=== PATIENT | male | born 1960 | race Caucasian/White ===

== ENCOUNTER 2020-01-25 14:24 | Emergency (ER) | payer BC, SELFPAY ==
[2020-01-25 14:38] VITALS: BP 187/146; PULSE 62; RESP 18; TEMP 36.8; O2SAT 98; BMI 46.7
--- NOTE | 2020-01-25 15:01 | XRR_ITS ---
PROCEDURE INFORMATION: Exam: XR Left Hand Exam date and time: 01/25/2020 3:01 PM Age: 59 years old Clinical indication: Injury or trauma; Other: Chainsaw; Laceration; Finger; Left; Thumb; Injury date: Today; Additional info: Thumb-laceration TECHNIQUE: Imaging protocol: XR Left hand. Views: 3 or more views. COMPARISON: No relevant prior studies available. FINDINGS: Bones/joints: There is a bandage on the distal 1st phalanx. There is a small bone fragment just volar to the base of the 1st distal phalanx that may be a small new fracture. No additional acute fracture. No dislocation. Moderate diffuse degenerative changes are noted. Soft tissues: There is soft tissue edema of the distal 1st phalanx. No foreign body. XR/XR hand LT min 3V* [id number] IMPRESSION: 1. There is soft tissue edema of the distal 1st phalanx. 2. There is a small bone fragment just volar to the base of the 1st distal phalanx that may be a small new fracture.
--- NOTE | 2020-01-25 15:01 | ED_ITS ---
HPI - Wound/Laceration General: Chief Complaint: Wound/Laceration Stated Complaint: LEFT HAND LACERATION Time Seen by Provider: 01/25/20 14:48 History of Present Illness: HPI narrative: Patient cut left thumb pad with chain saw about an hour ago Onset (ago): hour(s) Extremity Location: Left: hand (Thumb) Place: home Patient tetanus UTD: No Context: accidental Associated symptoms: Reports no associated symptoms; Denies chills or fever(s) Review of Systems Const: Denies: fever(s) or chills Skin/Breast: Reports: other (Laceration to thumb from chainsaw having about an hour ago) Physical Exam Const: COMMON NORMALS: no acute distress Skin: GENERAL SKIN EXAM: other (Patient has macerated the fat pad left thumb distal aspect active bleeding) Procedures Laceration Laceration 1: Site: hand Side (If applicable): left Size (cm): 5 Description: stellate, flap, irregular and contaminated Depth: simple, single layer Local Anesthetic: lidocaine 1% Amount of anesthesia used (mL): 6 Pre-repair: wound explored, irrigated extensively, deep structures intact, extensive debridement and wound margins revised Skin layer closed with: vicryl Size (cm): 3-0 and 4-0 Number of sutures: 15 Technique: simple, interrupted Course Vital Signs: Vital signs: Vital Signs Temperature 98.0 F 01/25/20 16:30 Pulse Rate 59 L 01/25/20 16:30 Respiratory Rate 18 01/25/20 16:30 Blood Pressure 175/94 01/25/20 16:30 Pulse Oximetry 96 01/25/20 16:30 MDM - Wound/Laceration MDM Narrative: Medical decision making narrative: Patient blood pressure normally does well he is on medication for decided to come pleasant 2 weeks ago blood pressure is fine checkup says goes up during times stress which he is under stress right now, blood pressure much better at the end of the procedure 170/80. Also discussed swelling in the finger stitches might be tight discussed drainage proper care of the wound follow-up with his family medical provider if problems develop wear splint Discharge Plan Discharge Patient Disposition: Home Clinical Impression: Laceration Condition: Stable Prescriptions: New Bactrim DS 800-160 mg tablet 1 tab PO DAILY 7 Days Qty: 14 RF: 0 hydrocodone-acetaminophen 5-325 mg tablet 1 tab PO Q6H PRN (Reason: pain) Qty: 20 RF: 0 Discharge Orders: Discharge Order (Routine); Ordered 01/25/20 Ordered By: Сергей Zhang Referrals: Adam Bonilla [Primary Care Provider] - Discharge Diet: Usual diet Discharge Activity: Increase activity as tolerated Patient Instructions: Suture Care (ED), Laceration (ED) Activity Restrictions/Additional Instructions: Follow-up with medical provider as directed. Take medications as prescribed. Return to the ER or your medical provider if condition worsens. Please read and understand discharge instructions. If any questions ask please. Wear splint. Sutures out in 7 days. Observe for signs symptoms of infection in the thumb. Discharge Date/Time: 01/25/20 17:48 Coding Level of Care Code ED School Speech Therapist for [facility] Thompson Exam Expanded Problem Focused
[2020-01-25 15:04] VITALS: BP 179/79
[2020-01-25] MEDS: tetanus-dipt-pertussis 0.5 mL SDV IM (15:13)
[2020-01-25 16:30] VITALS: BP 175/94; PULSE 59; RESP 18; TEMP 36.7; O2SAT 96
--- NOTE | 2020-01-26 07:17 | W.ED.WOUNDLC ---
HPI - Wound/Laceration General: Chief Complaint: Wound/Laceration Stated Complaint: LEFT HAND LACERATION Time Seen by Provider: 01/25/20 14:48 History of Present Illness: HPI narrative: See other chart Place: home Course Vital Signs: Vital signs: Vital Signs Temperature 98.0 F 01/25/20 16:30 Pulse Rate 59 L 01/25/20 16:30 Respiratory Rate 18 01/25/20 16:30 Blood Pressure 175/94 01/25/20 16:30 Pulse Oximetry 96 01/25/20 16:30 MDM - Wound/Laceration MDM Narrative: Medical decision making narrative: See other chart not sure why this chart came up patient does have an open fracture of the thumb I did discuss the case with Dr. Unger and she felt okay to go ahead and close the wound placed on antibiotics follow-up family medical provider if no significant improvement are consider Ortho referral if no significant improvement or tell of the bone fragment of the first distal phalanx is old are related to this the wound is still open and allows for drainage. Unable to completely close wound due to the nature of the wound and missing skin. Since the revision was done. Discharge Plan Discharge Patient Disposition: Home Clinical Impression: Laceration Condition: Stable Prescriptions: New Bactrim DS 800-160 mg tablet 1 tab PO DAILY 7 Days Qty: 14 RF: 0 hydrocodone-acetaminophen 5-325 mg tablet 1 tab PO Q6H PRN (Reason: pain) Qty: 20 RF: 0 Discharge Orders: Discharge Order (Routine); Ordered 01/25/20 Ordered By: Сергей Zhang Referrals: Adam Bonilla [Primary Care Provider] - Discharge Diet: Usual diet Discharge Activity: Increase activity as tolerated Patient Instructions: Suture Care (ED), Laceration (ED) Activity Restrictions/Additional Instructions: Follow-up with medical provider as directed. Take medications as prescribed. Return to the ER or your medical provider if condition worsens. Please read and understand discharge instructions. If any questions ask please. Wear splint. Sutures out in 7 days. Observe for signs symptoms of infection in the thumb. Discharge Date/Time: 01/25/20 17:48 Coding Level of Care Code ED Patient Service Coordinator for Victor Hugo Thompson
== END 2020-01-25 17:48 | disposition home or self-care (01) ==
PROVIDERS: Emergency Provider Nurse Practitioner Family; Family Provider Family Medicine; PCP Family Medicine
DX: S61.012A Laceration without foreign body of left thumb without damage to nail, initial encounter (principal); W29.3XXA Contact with powered garden and outdoor hand tools and machinery, initial encounter; Z23 Encounter for immunization
CPT/HCPCS: 12002; 12345; 73130; 90471; 90715; 99281; 99283

== ENCOUNTER 2021-01-01 16:23 | Outpatient (CLI) | payer OTHER, SELFPAY ==
--- NOTE | 2021-01-01 | XRR_ITS ---
PROCEDURE INFORMATION: Exam: XR Chest Exam date and time: 01/01/2021 12:00 AM Age: 60 years old Clinical indication: Other: Atypical facial pain TECHNIQUE: Imaging protocol: XR of the chest. Views: 2 views. COMPARISON: No relevant prior studies available. FINDINGS: Lungs: Unremarkable. No consolidation. Pleural spaces: Unremarkable. No pleural effusion. No pneumothorax. Heart/Mediastinum: Unremarkable. No cardiomegaly. Bones/joints: Unremarkable. XR/XR chest 2V* [id number] IMPRESSION: No acute findings.
== END 2021-01-01 16:24 | disposition home or self-care (01) ==
LOC: RT 16:29
PROVIDERS: PCP Family Medicine; Visit Provider Specialist
DX: G50.1 Atypical facial pain (principal)
CPT/HCPCS: 71046

== ENCOUNTER 2021-11-06 13:56 | Outpatient (CLI) | payer OTHER, SELFPAY ==
--- NOTE | 2021-11-06 15:09 | XRR_ITS ---
PROCEDURE INFORMATION: Exam: XR Right Foot Exam date and time: 11/06/2021 3:09 PM Age: 61 years old Clinical indication: Pain; Foot; Right; Patient HX: Big toe; Additional info: E11.628 - type 2 diabetes mellitus with other skin compli. . . , Osteo? TECHNIQUE: Imaging protocol: Radiologic exam of the Right foot. Views: 3 or more views. COMPARISON: No relevant prior studies available. FINDINGS: Bones/joints: Age indeterminate fracture of the distal metaphyses of the proximal phalanx involving the articular surface. Soft tissue edema of the big toe Soft tissues: See Bones/joints finding. XR/XR foot RT min 3V* [id number] IMPRESSION: Age indeterminate fracture of the distal metaphyses of the proximal phalanx involving the articular surface. Soft tissue edema of the big toe.
== END 2021-11-06 13:57 | disposition home or self-care (01) ==
PROVIDERS: PCP Family Medicine; Visit Provider Emergency Medicine
DX: E11.628 Type 2 diabetes mellitus with other skin complications (principal); L08.9 Local infection of the skin and subcutaneous tissue, unspecified; S92.911A Unspecified fracture of right toe(s), initial encounter for closed fracture; X58.XXXA Exposure to other specified factors, initial encounter; R60.0 Localized edema
CPT/HCPCS: 73630

== ENCOUNTER → 2021-11-24 14:11 | Outpatient (BNVA) | payer OTHER, SELFPAY | PROVIDERS: PCP Family Medicine; Visit Provider Emergency Medicine | DX: S92.491A Other fracture of right great toe, initial encounter for closed fracture (principal); X58.XXXA Exposure to other specified factors, initial encounter | CPT/HCPCS: 73630 ==

== ENCOUNTER → 2021-11-26 15:35 | Outpatient (BNVA) | payer OTHER, SELFPAY | PROVIDERS: PCP Family Medicine; Referring Provider Podiatrist Foot & Ankle Surgery; Visit Provider Podiatrist Foot & Ankle Surgery | DX: S92.413A Displaced fracture of proximal phalanx of unspecified great toe, initial encounter for closed fracture (principal); G62.9 Polyneuropathy, unspecified; M79.671 Pain in right foot; R60.9 Edema, unspecified; X58.XXXA Exposure to other specified factors, initial encounter | CPT/HCPCS: 73630; 99213 ==

== ENCOUNTER → 2021-12-16 08:13 | Outpatient (BNVA) | payer OTHER, SELFPAY | PROVIDERS: PCP Family Medicine; Visit Provider Podiatrist Foot & Ankle Surgery | DX: S92.413A Displaced fracture of proximal phalanx of unspecified great toe, initial encounter for closed fracture (principal); X58.XXXA Exposure to other specified factors, initial encounter; R60.9 Edema, unspecified; G62.9 Polyneuropathy, unspecified | CPT/HCPCS: 73630 ==

== ENCOUNTER → 2022-01-06 08:09 | Outpatient (BNVA) | payer OTHER, SELFPAY | PROVIDERS: PCP Family Medicine; Visit Provider Podiatrist Foot & Ankle Surgery | DX: X58.XXXA Exposure to other specified factors, initial encounter (principal); S92.413A Displaced fracture of proximal phalanx of unspecified great toe, initial encounter for closed fracture; R60.9 Edema, unspecified; G62.9 Polyneuropathy, unspecified | CPT/HCPCS: 73630 ==

== ENCOUNTER 2024-05-13 12:18 | Outpatient (CLI) | payer BC, SELFPAY ==
--- NOTE | 2024-05-13 12:26 | CT_ITS ---
WS: [id number] CT NECK TECHNIQUE: Contrast-enhanced CT of the neck with coronal and sagittal reformatted images. CLINICAL INFORMATION: MASS AND LUMP, NECK COMPARISON: None. DLP: 313.[address] scans at [facility] use at least one of these dose optimization techniques: automated e xposure control; mA and/or kV adjustment per patient size (includes targeted exams where dose is matc hed to clinical indication); or iterative reconstruction. FINDINGS: Dental artifact degrades some images. Paranasal sinuses and mastoid air cells are well aerated. Luiza l posterior nasopharynx. Normal parapharyngeal fat. Parotid glands are normal. 8 mm nodule LEFT parot id likely incidental intraparotid lymph node. Normal submandibular glands. Normal parapharyngeal fat. No evidence of supraglottic or glottic mass. Few secretions in the LEFT vallecula. A few small thyro id nodules. This can be followed up with ultrasound. No cervical lymphadenopathy. Mild spondylitic ch anges. Lung apices are well aerated. Normal submandibular glands. CT/CT neck w con* [id number] IMPRESSION: 1. No visualized cystic or solid lesions in the LEFT neck per order indication . No outside comparisons or reports available. 2. Small nodule LEFT parotid gland likely incidental intraparotid lymph node m easuring 8 mm. No other suspicious parotid findings. 3. Normal submandibular glands. 4. No cervical lymphadenopathy. 5. No evidence of supraglottic or glottic mass. Normal subglottic airway. 6. A few subcentimeter thyroid nodules. This could be followed up with ultraso und. 7. No other acute findings.
[2024-05-13 12:53] LABS: Blood Urea Nitrogen 11 mg/dL (8-23); Glomerular Filtration Rate 97.3 mL/min (90-130)
[2024-05-13] MEDS: iohexol 350 mg/mL 500 mL Btl (per mL) IV (13:04)
== END 2024-05-13 12:19 | disposition home or self-care (01) ==
LOC: RAD 12:21
PROVIDERS: PCP Family Medicine; Visit Provider Specialist
DX: E04.2 Nontoxic multinodular goiter (principal); R93.89 Abnormal findings on diagnostic imaging of other specified body structures; R93.7 Abnormal findings on diagnostic imaging of other parts of musculoskeletal system
CPT/HCPCS: 70491; 82565; 84520

== ENCOUNTER 2024-05-21 11:15 | Observation (INO) | payer BC, SELFPAY ==
[2024-05-21] VITALS (21 sets, daily range): BP systolic 145–183; BP diastolic 73–125; PULSE 66–86; RESP 10–18; TEMP 36.1–36.8; O2SAT 91–96; BMI 45.0
[2024-05-21 06:32] LABS: Glucose Point of Care 125 mg/dL (70-110)
[2024-05-21 06:42] LABS: Basophils # 0.1 10^3/uL (0.0-0.1); Basophils % 1.2 %; Eosinophils # 0.2 10^3/uL (0.0-0.8); Lymphocytes # 1.4 10^3/uL (0.8-4.8); Lymphocytes % 24.9 %; Mean Corpuscular HGB Conc 33.9 g/dL (30-55); Mean Corpuscular Hemoglobin 30.2 pg (27-33); Mean Corpuscular Volume 89.1 fl (82-101); Mean Platelet Volume 10.2 fL (7.4-10.4); Monocytes # 0.7 10^3/uL (0.2-0.9); Monocytes % 11.7 %; Neutrophils # 3.36 10^3/uL (1.8-7.7); Nucleated Red Blood Cells % 0 %; Platelet Count 295 10^3/cmm (157-399); Red Cell Distribution Width 12.6 % (12.1-15.1); White Blood Count 5.79 10^3/uL (3.29-11.43)
[2024-05-21] MEDS: sodium chloride 0.9% 1,000 ML 30 ML IV (06:43)
--- NOTE | 2024-05-21 06:47 | ANES.PREANE2 ---
Pre-Anesthetic Assessment Height/Weight: Height 2.01 m Weight 181.437 kg O2 Del Method Room Air 05/21/24 06:15 Operation Date: 05/21/24 07:00 Proposed Procedures p Left superficial parotidectomy(Left) - Dragan Joshi MD s Possible left Abdominal Fat Graft(Left) - Dragan Joshi MD s Possible left Excisional biopsy of deep cervical lymph node(Left) - Dragan Joshi MD Familial anesthetic complications: None Was Beta Elton taken within 24 hours: N/A Was Clonidine taken within 24 hours: N/A Last intake: Intake Last Liquid Date 05/20/24 Last Liquid Time 22:30 Last Solid Date 05/20/24 Last Solid Time 17:00 Social No alcohol and No tobacco Exam alert, oriented x 3, clear to auscultation bilaterally and regular rate & rhythm Airway Mallampati: Class IV Dentition: other (missing) Comments: Comments: Large neck and tongue Pulmonary Sleep Apnea CV/HEM Hypertension Metabolic Diabetes Mellitus and Morbid Obesity daily semaglutide pills - held for 24 hrs Anesthetic Plan ASA status: 3 Anesthesia: General Other: RSI for glp-1 use Risk of > 500 ml blood loss (7ml/kg in children): No Medications/Allergies Home Medications ?Medication ?Instructions ?Recorded ?Confirmed ?Last Taken ?Type ascorbic acid (vitamin C) 1,000 mg 1 g PO Q6H 11/06/21 05/21/24 05/19/24 History tablet etodolac 400 mg tablet 400 mg PO BID 11/06/21 05/21/24 05/19/24 History lisinopril 20 mg tablet 20 mg PO DAILY 11/06/21 05/20/24 05/20/24 History loratadine 10 mg tablet (Allergy 10 mg PO DAILY 11/06/21 05/20/24 05/20/24 History Relief (loratadine)) metformin 500 mg tablet 500 mg PO DAILY 11/06/21 05/20/24 05/20/24 History psyllium husk 0.52 gram capsule 0.52 g PO DAILY 11/06/21 05/20/24 05/20/24 History (Daily Fiber) turmeric root extract 500 mg tablet 2 mg PO DAILY 11/06/21 05/20/24 05/20/24 History vitamin B complex-folic acid 0.4 1 tab PO DAILY 11/06/21 05/20/24 05/20/24 History mg tablet (Super B Maxi Complex) semaglutide 14 mg tablet (Rybelsus) 14 mg PO DAILY 05/20/24 05/20/24 05/20/24 History Allergies Allergy/AdvReac Type Severity Reaction Status Date / Time Penicillins Allergy ALGY-Hives Verified 05/21/24 06:10 [facility] Anesthesia Social History Smoking and tobacco/nicotine status: unknown if used tobacco/nicotine Data Anesthesia 05/21/24 06:29 05/21/24 06:29 Short CBC 05/21/24 Range/Units 06:29 WBC 5.79 (3.29-11.43) 10^3/uL Hgb 16.60 (11.27-16.99) g/dL Hct 49.0 (37-53) % MCV 89.1 (82-101) fl Plt Count 295 (157-399) 10^3/cmm Neut % (Auto) 58.0 % Neut # (Auto) 3.36 (1.8-7.7) 10^3/uL Cardiac Studies: No Data to Display
--- NOTE | 2024-05-21 06:48 | PM.OPSURHP ---
Providers/Chief Complaint Admitting Physician: Dr. Dragan Joshi MD Primary Care Provider: aCrlos Lopez MD Chief Complaint: D37.030 64 yo wm with a h/o a painful left parotid mass. History of Present Illness Yaya Chinchilla is a 64 year old male with a h/o left parotid area pain who was noted to have a left parotid mass on MRI of the area. FNA biopsy was unrevealing. The patient now desires surgical excision. The patient denies any other noted symptoms and is o/w without c/o. Review of Systems General: Reports: 10 or more systems reviewed and unremarkable except in HPI and below Medications/Allergies Home Medications ?Medication ?Instructions ?Recorded ?Confirmed ?Last Taken ?Type ascorbic acid (vitamin C) 1,000 mg 1 g PO Q6H 11/06/21 05/21/24 05/19/24 History tablet etodolac 400 mg tablet 400 mg PO BID 11/06/21 05/21/24 05/19/24 History lisinopril 20 mg tablet 20 mg PO DAILY 11/06/21 05/20/24 05/20/24 History loratadine 10 mg tablet (Allergy 10 mg PO DAILY 11/06/21 05/20/24 05/20/24 History Relief (loratadine)) metformin 500 mg tablet 500 mg PO DAILY 11/06/21 05/20/24 05/20/24 History psyllium husk 0.52 gram capsule 0.52 g PO DAILY 11/06/21 05/20/24 05/20/24 History (Daily Fiber) turmeric root extract 500 mg tablet 2 mg PO DAILY 11/06/21 05/20/24 05/20/24 History vitamin B complex-folic acid 0.4 1 tab PO DAILY 11/06/21 05/20/24 05/20/24 History mg tablet (Super B Maxi Complex) semaglutide 14 mg tablet (Rybelsus) 14 mg PO DAILY 05/20/24 05/20/24 05/20/24 History Allergies Allergy/AdvReac Type Severity Reaction Status Date / Time Penicillins Allergy ALGY-Hives Verified 05/21/24 06:10 PFSH PFSH: Social History Smoking and tobacco/nicotine status: unknown if used tobacco/nicotine Dietary Habits: Caffeine: Yes Caffeine intake frequency: coffee Vital Signs Vitals Signs: Last Vital Signs O2 Del Method Room Air 05/21/24 06:15 Weight: Weight last 48 hrs Weight 181.437 kg Physical Exam Const: COMMON NORMALS: no acute distress, patient oriented x3, healthy appearing and alert HENMT: COMMON NORMALS: normocephalic, atraumatic, Normal external nose present, Normal nasal mucous membranes and turbinates present and moist oral mucous membranes HEAD & SCALP: normal to inspection, normocephalic and atraumatic FACE & SINUS: normal facial exam and other (Mild tenderness of the left parotid area; no palpable mass present.) EXTERNAL EAR: Yes external ears normal Eye: COMMON NORMALS: Equal, round and reactive pupils present, EOMs intact bilaterally, conjunctivae normal and no scleral icterus Neck/C-Spine: COMMON NORMALS: full ROM, no lymphadenopathy and supple GENERAL: Yes normal visual inspection and Yes trachea midline Lymph: LYMPHATIC: no lymphadenopathy noted Chest: COMMONS NORMALS: normal inspection of the chest Resp: COMMON NORMALS: normal respiratory effort, No use of accessory muscles and clear to auscultation bilaterally Cardio: COMMON NORMALS: regular rate, regular rhythm and No murmurs present (Cardio) GI: COMMON NORMALS: Normal to inspection, nondistended, normoactive bowel sounds present Extremity: COMMON NORMALS: normal to inspection Neuro: COMMON NORMALS: CN's II-XII intact bilaterally, moves all extremities, no focal motor deficits and no sensory deficits noted Data 05/21/24 06:29 05/21/24 06:29 A&P Assessment and plan (1) Parotid mass: Impression: Left parotid mass - symptomatic Plan: - Left parotidectomy with possible left neck dissection and/or left abdominal fat graft harvest under general anesthesia - The alternatives to surgery and potential risks of the procedure were explained to the patient. He expressed understanding and wishes to proceed with surgery. Coding Level of Care Code Acute Code for Chg Fwd Diagnoses Parotid mass K11.8
--- NOTE | 2024-05-21 06:55 | W.PM.OPSUD ---
Surgery/Procedure H&P Update DATE OF PROCEDURE: May 21, 2024 DATE H&P PERFORMED: 05/08/24 PRIMARY INDICATION FOR PROCEDURE: Symptomatic left parotid mass PLANNED PROCEDURE: Operation Date: 05/21/24 07:00 Proposed Procedures p Left superficial parotidectomy(Left) - Dragan Joshi MD s Possible left Abdominal Fat Graft(Left) - Dragan Joshi MD s Possible left Excisional biopsy of deep cervical lymph node(Left) - Dragan Joshi MD
[2024-05-21 06:59] LABS: Anion Gap 13.3 (5-19); Blood Urea Nitrogen 11 mg/dL (8-23); Calcium 9.2 mg/dL (8.5-10.5); Carbon Dioxide 27 mmol/L (22-29); Chloride 103 mmol/L (98-107); Creatinine Clr Calc Pharmacy 169.9376; Glomerular Filtration Rate 97.3 mL/min (90-130); Glucose 139 mg/dL (65-115); Osmolality Calculated 290 mOsm/kg (285-295); Potassium 4.3 mmol/L (3.5-5.1); Sodium 139 mmol/L (136-145)
[2024-05-21] MEDS: clindamycin 900 MG/50 ML PREMIX 100 MG IV (07:02)
[2024-05-21] MEDS: lidocaine-epi 1% 20 mL INJ INJECTION (08:17)
[2024-05-21] MEDS: thrombin 5,000 unit SDV 5000 UNIT XX (09:24)
[2024-05-21] MEDS: neomycin-poly-bacitracin oint 28 gm 1 APPLIC TOPICAL (10:00)
[2024-05-21] MEDS: fluorescein 1 mg Strip XX (10:00)
[2024-05-21] MEDS: EPINEPHrine 1 mg/mL INJ XX (10:00)
[2024-05-21] MEDS: triamcinolone 40 mg/mL SDV IM (10:38)
--- NOTE | 2024-05-21 10:53 | P.OP_ITS ---
Operative Report Date of procedure: May 21, 2024 Pre-op diagnosis: Left parotid mass Post-op diagnosis: Left parotid mass Post-op findings: Small left parotid mass - superficial lobe Procedure done: Left superficial parotidectomy Implants: None Specimens removed/disposition: Left superficial parotid lobe Pathology: Left parotid gland - superficial lobe Surgeon: Dragan Joshi Surgeon: Dragan Joshi MD Fast Food Supervisor: Douglas Caballero Anesthesia: General Estimated blood loss (mL): 15 IV fluids (mL): 1,700 Complications: None Findings: Small mass, left superficial parotid gland Condition: stable Disposition: PACU Brief History: The patient is a 64 yo wm with a h/o a left parotid gland superficial lobe mass that is symptomatic - the patient desires surgical removal. Procedure: The patient was identified in the preoperative holding area and was taken to the operating room where he was placed on the operating table in the supine position. Anesthesia was obtained with general endotracheal anesthesia and the table was then turned 180 degrees. The Nirvana nerve monitoring system was placed on the patient's left face, and a modified Jurgen incision was drawn out on the patient's left face. The left facial incision was then injected with local anesthesia and the patient was then prepped and draped in the usual sterile fashion. A left lower quadrant incision was also drawn out prepped and draped in the usual sterile fashion. Using 6-1/2 power loupe magnification, the left facial incision was made with a 15 blade and was carried down to the subcutaneous tissues. A flap was raised that was anteriorly based on the face using a combination of sharp scissors and Metzenbaum scissors. At this point a dissection was begun in the immediate preauricular area extending down into the sternocleidomastoid area the posterior aspect of the parotid gland from the auricular cartilage and the sternocleidomastoid muscle. An attempt was made at preservation of the great auricular nerve, but it was found to enter into the area of concern of the left parotid gland and was sacrificed. The posterior dissection continued on a broad front using the Nirvana nerve monitoring hemostat until the trunk of the facial nerve was identified both visually and electrically. At this point the facial nerve was dissected out to the pes anserinus and was tracked out through the parotid tissue using the nerve monitoring hemostat. The tissue overlying the facial nerve branches was then divided using the microbipolar forceps and the superficial parotid gland was rem andrey from the underlying facial nerve and deep parotid in a sequential fashion using blunt dissection, bipolar dissection, and the harmonic scalpel while protecting the underlying facial nerve. Once the superficial portion of the gland was removed, it was sent for frozen section analysis and no malignancy was found. The wound was then inspected for hemostasis which was found to be adequate. Gelfoam pledgets soaked in thrombin and Decadron were placed over the facial nerve. Attention was then turned to the left lower quadrant - the left lower quadrant incision was made with 15 blade and a fat graft was harvested from the subcutaneous fat. The abdominal wound was then closed with interrupted 4-0 Monocryl suture subcu and running 3-0 Prolene on skin and was covered with a sterile dressing. At this point attention was turned to the left facial wound. The fat graft harvested from the abdomen was placed in the to the left facial wound was sutured in place with interrupted 4-0 Monocryl sutures. A drain was placed in the left facial wound and the wound was then closed with interrupted 4-0 Monocryl sutures in the subcu and a running 5-0 Prolene on the skin. At this point the procedure was terminated and control of the patient was returned to anesthesia where he underwent an uneventful reversal of anesthesia and extubation was taken to the recovery room in stable condition. There were no operative or anesthetic complications
[2024-05-21] MEDS: famotidine 20 mg/2 mL INJ IVP ×2 (11:55→23:01)
[2024-05-21] MEDS: lactated ringers 1,000 ML 125 ML IV (11:55)
[2024-05-21] MEDS: ascorbic acid 500 mg Tablet 1000 MG PO ×2 (11:58→17:51)
[2024-05-21] MEDS: oxyCODONE-APAP 5-325 mg Tablet 1 TAB PO ×3 (11:58→23:00)
--- NOTE | 2024-05-21 12:05 | ANE.PACU2 ---
Inpatient post-anesthesia follow up: Airway intact: Yes Vital signs: Temperature 98.2 F Pulse Rate 86 Respiratory Rate 18 Blood Pressure 175/107 Pulse Oximetry 92 Oxygen Delivery Me thod Room Air Oxygen Flow Rate 8 Fraction of Inspir ed Oxygen Hydration adequate: Yes Nausea and vomiting: No Pain level: 1 Mental status: Baseline
[2024-05-21] MEDS: clindamycin 600 MG/50 ML PREMIX 100 MG IV ×2 (14:21→23:00)
[2024-05-21] MEDS: morphine 4 mg/mL SDV 1 mL 2 MG IVP ×2 (15:12→20:10)
[2024-05-21] MEDS: docusate sodium 100 mg Capsule PO (17:51)
--- NOTE | 2024-05-21 18:07 | P.PN_ITS ---
Subjective 2 Subjective: 64 yo wm who is night of surgery s/p lef t superficial parotidectomy who reports doing well. The patient has moderate pain, but is taking po well and has no other c/o. Medications: Reviewed: Yes Vitals/I&O/Wt Last Vital Signs Temp 97.8 F 05/21/24 17:07 Pulse 82 05/21/24 17:07 Resp 14 05/21/24 17:51 BP 178/102 05/21/24 17:07 Pulse Ox 92 05/21/24 17:07 O2 Del Method Room Air 05/21/24 17:07 O2 Flow Rate 8 05/21/24 11:08 05/21/24 05/21/24 05/21/24 06:59 14:59 22:59 Intake Total 2160 / 2160 850 / 3010 Output Total 815 / 815 1920 / 2735 Balance 1345 / 1345 -1070 / 275 Weight last 48 hrs Weight 181.437 kg Physical Exam 2 Const: COMMON NORMALS: no acute distress, patient oriented x3 and healthy appearing HENMT: COMMON NORMALS: normocephalic, atraumatic and Normal external nose present HEAD & SCALP: normocephalic and atraumatic FACE & SINUS: other (Left facial/neck wound intact without swelling.) NOSE: Normal external nose present MOUTH: Normal oral and palatal mucosa present Eye: COMMON NORMALS: conjunctivae normal and no scleral icterus C ONJUNCTIVA: Yes conjunctivae normal Neck/C-Spine: COMMON NORMALS: no lymphadenopathy and supple Chest: COMMONS NORMALS: normal inspection of the chest Resp: COMMON NORMALS: normal respiratory effort, No retractions and clear to auscultation bilaterally AUSCULTATION: clear to auscultation bilaterally Cardio: COMMON NORMALS: regular rate, regular rhythm and No murmurs present (Cardio) RATE: regular rate RHYTHM: regular rhythm Extremity: COMMON NORMALS: normal to inspection Neuro: COMMON NORMALS: patient oriented x3 and CN's II-XII intact bilaterally SENSORIUM/ORIENTATION: Yes other (Facial nerve function intact bilaterally.) Urinary Catheter Management: Rosenberg: Cath Placed During This Visit: yes, but has since been removed by the nurse Urinary Catheter Date of Insertion: 05/21/24 Urinary Catheter Time of Insertion: 07:13 Date Urinary Catheter Removed: 05/21/24 Time Urinary Catheter Discontinued: 10:36 Data 02/04/25 06:29 05/21/24 06:29 A&P Assessment and plan (1) Parotid mass: Impression: Night of surgery s/p left superficial parotidectomy doing well Plan: - Overnight observation - Closed suction drainage - Regular diet - Pain management - Anticipate d/c in the morning PDMP PDMP Reviewed: Not Reviewed Attestations 2 Medical Necessity Statement*: The patient requires overnight observation of his airway. Coding Level of Care Code Acute Code for Chg Fwd Diagnoses Parotid mass K11.8
[2024-05-22] MEDS: HYDROmorphone 1 mg/mL INJ 1 mL 0.4 MG IVP (00:18)
[2024-05-22] MEDS: ascorbic acid 500 mg Tablet 1000 MG PO ×2 (00:19→05:31)
[2024-05-22 04:21] VITALS: BP 138/76; PULSE 71; RESP 16; TEMP 36.6; O2SAT 96
--- NOTE | 2024-05-22 05:07 | P.PN_ITS ---
Subjective 2 Subjective: 64 yo wm who is POD #1 s/p left superfic ial parotidectomy. The patient reports some overnight pain, but is o/w without c/o. Medications: Reviewed: Yes Vitals/I&O/Wt Last Vital Signs Temp 97.9 F 05/22/24 04:21 Pulse 71 05/22/24 04:21 Resp 16 05/22/24 04:21 BP 138/76 05/22/24 04:21 Pulse Ox 96 05/22/24 04:21 O2 Del Method CPAP 05/22/24 04:21 O2 Flow Rate 8 05/21/24 11:08 05/21/24 05/21/24 05/22/24 14:59 22:59 06:59 Intake Total 2160 / 2160 2250 / 4410 950 / 5360 Output Total 815 / 815 1920 / 2735 1000 / 3735 Balance 1345 / 1345 330 / 1675 -50 / 1625 Weight last 48 hrs Weight 181.437 kg Physical Exam 2 Const: COMMON NORMALS: no acute distress and patient oriented x3 EXAM LIMITATIONS: altered mental status HENMT: COMMON NORMALS: normocephalic, atraumatic and Normal external nose present HEAD & SCALP: normocephalic and atraumatic FACE & SINUS: face symmetric and other (The left facial/neck incision is intact without swelling.) NOSE: Normal external nose present Eye: COMMON NORMALS: conjunctivae normal and no scleral icterus C ONJUNCTIVA: Yes conjunctivae normal Neck/C-Spine: COMMON NORMALS: no lymphadenopathy GENERAL: Yes trachea midline Chest: COMMONS NORMALS: normal inspection of the chest Resp: COMMON NORMALS: normal respiratory effort, No retractions and clear to auscultation bilaterally AUSCULTATION: clear to auscultation bilaterally Cardio: COMMON NORMALS: regular rate, regular rhythm and No murmurs present (Cardio) RATE: regular rate RHYTHM: regular rhythm GI: COMMON NORMALS: Normal to inspection, nondistended, normoactive bowel sounds present INSPECTION: Yes other (Abdominal wound with dressing intact. No erythema.) Extremity: COMMON NORMALS: normal to inspection Neuro: COMMON NORMALS: patient oriented x3 Urinary Catheter Management: Rosenbegr: Cath Placed During This Visit: yes, but has since been removed by the nurse Urinary Catheter Date of Insertion: 05/21/24 Urinary Catheter Time of Insertion: 07:13 Date Urinary Catheter Removed: 05/21/24 Time Urinary Catheter Discontinued: 10:36 Data 05/21/24 06:29 05/21/24 06:29 A&P Assessment and plan (1) Parotid mass: Impression: - Left parotid Mass doing well s/p left superficial parotidectomy on POD #1 - Normal post operative pain Plan: - Percocet () tabs: take 1-2 tabs po Q5 hours prn pain, #25, NR - Apply AMBER to all wounds TID - Empty and record GLORIA drain output once daily - F/U in Dr. Joshi's office in 48 hours - Regular diet - Notify Dr. Joshi for any problems PDMP PDMP Reviewed: Not Reviewed Attestations 2 Medical Necessity Statement*: The patient required overnight observation for airway monitoring and pain management. Coding Level of Care Code Acute Code for Chg Fwd Diagnoses Parotid mass K11.8
[2024-05-22 07:46] VITALS: BP 123/61; PULSE 69; RESP 16; TEMP 36.6; O2SAT 95
[2024-05-22 08:05] VITALS: BP 123/69; PULSE 69; RESP 16; TEMP 36.6; O2SAT 95
== END 2024-05-22 08:07 | disposition home or self-care (01) ==
LOC: MEDSURG 11:17
PROVIDERS: Anesthesiology; Admitting Provider Specialist; PCP Family Medicine; Visit Provider Specialist
PROC: (CPT 42410; principal; 2024-05-21 07:00)
PROC: (CPT 15769; 2024-05-21 07:00)
DX: D11.0 Benign neoplasm of parotid gland (principal); G47.30 Sleep apnea, unspecified; I10 Essential (primary) hypertension; E11.9 Type 2 diabetes mellitus without complications; E66.01 Morbid (severe) obesity due to excess calories; Z68.42 Body mass index [BMI] 45.0-49.9, adult
CPT/HCPCS: 42415; 36415; 36416; 51702; 80048; 82962; 85025; 88307; 88331; G0378; J0131; J0171; J0330; J1100; J1171; J2270; J2405; J2704; J3010; J3301; J3490; J7030; J7120